=== PATIENT | female | born 1990 | race African-American/Black ===

== ENCOUNTER 2017-11-18 12:52 | Emergency (ER) | payer OTHER ==
[~2017-11-18] VITALS: Ht 157.5 cm; Wt 82.6 kg
[2017-11-18 14:12] LABS: URINE BILIRUBIN NEGATIVE (Negative); URINE BLOOD NEGATIVE (Negative); URINE CLARITY CLEAR; URINE COLOR YELLOW; URINE GLUCOSE-RANDOM* NEGATIVE (Negative); URINE KETONES NEGATIVE (Negative); URINE LEUKOCYTES NEGATIVE (Negative); URINE NITRITE NEGATIVE (Negative); URINE PROTEIN (DIPSTICK) TRACE (Negative); URINE SPECIFIC GRAVITY 1.015 (1.005-1.035)
[2017-11-18] MEDS ORDERED: ZOLOFT25 MG PO (14:25)
[2017-11-18] MEDS ORDERED: THIAMINE PO (14:26)
[2017-11-18] MEDS ORDERED: NO DOZ200 MG PO (14:27)
[2017-11-18] MEDS ORDERED: B-COMPLEX PLUS1 EACH PO (14:27)
[2017-11-18 14:51] LABS: ABSOLUTE NEUTROPHILS 10.5 thou/uL (1.4-8.2); BASOPHILS 0.2 % (0.0-2.0); EOSINOPHILS 0.6 % (0.0-3.0); HEMATOCRIT 38.3 % (37.0-47.0); HEMOGLOBIN 13.3 gm/dL (12.0-15.0); LYMPHOCYTES 13.1 % (24.0-44.0); MCH 29.6 pg (26.0-34.0); MCHC 34.8 g/dL (28.0-37.0); MONOCYTES 5.2 % (1.0-8.0); PLATELET COUNT 392 thou/uL (150-400); POLYS 80.9 % (36.0-66.0); RDW 12.5 % (10.5-14.5); WBC 12.9 thou/uL (4.0-11.0)
[2017-11-18 15:23] LABS: CALCIUM 9.3 mg/dL (8.5-10.1); CREATININE 0.6 mg/dL (0.6-1.0); POTASSIUM 3.6 mmol/L (3.5-5.1)
[2017-11-18 15:28] LABS: ALBUMIN 3.7 g/dL (3.4-5.0); TOTAL BILIRUBIN 0.6 mg/dL (<0.1-1.0); TOTAL PROTEIN 7.4 g/dL (6.4-8.2)
[2017-11-18] MEDS ORDERED: ONDANSETRON HCL4 M2 PO (16:29)
[2017-11-18] MEDS ORDERED: TRAMADOL 50 MG50 MG PO (16:29)
== END 2017-11-18 16:45 | disposition home or self-care (01) ==
LOC: ER 12:52
PROVIDERS: Nurse Practitioner Family
DX: K80.20 Calculus of gallbladder without cholecystitis without obstruction (principal); R94.5 Abnormal results of liver function studies

== ENCOUNTER 2021-03-13 00:01 | Emergency (ER) | payer OTHER ==
[~2021-03-13] VITALS: Ht 157.5 cm; Wt 81.7 kg
[~2021-03-13 00:01] MED LIST: B-COMPLEX PLUS1 EACH PO; NO DOZ200 MG PO; ONDANSETRON HCL4 M2 PO; THIAMINE PO; TRAMADOL 50 MG50 MG PO; ZOLOFT25 MG PO
[2021-03-13 00:05] VITALS: BP 120/77
[2021-03-13] MEDS ORDERED: NORCO7.5 PO (00:50)
== END 2021-03-13 01:36 | disposition home or self-care (01) ==
LOC: ER 00:01
DX: S82.64XA Nondisplaced fracture of lateral malleolus of right fibula, initial encounter for closed fracture (principal); W01.0XXA Fall on same level from slipping, tripping and stumbling without subsequent striking against object, initial encounter; Y93.02 Activity, running; Y92.410 Unspecified street and highway as the place of occurrence of the external cause; Y99.8 Other external cause status; F17.210 Nicotine dependence, cigarettes, uncomplicated

== ENCOUNTER 2021-05-07 08:13 | Emergency (ER) | payer OTHER ==
[~2021-05-07] VITALS: Ht 160 cm; Wt 83.0 kg
[2021-05-07 08:13] VITALS: BP 121/74
[~2021-05-07 08:13] MED LIST changes: +NORCO7.5 PO
== END 2021-05-07 08:58 | disposition home or self-care (01) ==
LOC: ER 08:13
PROVIDERS: Emergency Medicine
DX: U07.1 COVID-19 (principal); F17.210 Nicotine dependence, cigarettes, uncomplicated; Z79.899 Other long term (current) drug therapy

== ENCOUNTER 2021-06-02 11:07 | Emergency (ER) | payer OTHER ==
[~2021-06-02] VITALS: Ht 160 cm; Wt 83.9 kg
[2021-06-02] MEDS ORDERED: LEXAPRO 10 MG T10 M2 PO (11:20)
[2021-06-02 13:11] VITALS: BP 119/83
== END 2021-06-02 13:18 | disposition home or self-care (01) ==
LOC: ER 11:07
DX: S62.604A Fracture of unspecified phalanx of right ring finger, initial encounter for closed fracture (principal); S60.041A Contusion of right ring finger without damage to nail, initial encounter; F17.210 Nicotine dependence, cigarettes, uncomplicated; Z79.899 Other long term (current) drug therapy; Y09 Assault by unspecified means; Y93.89 Activity, other specified; Y92.89 Other specified places as the place of occurrence of the external cause; Y99.8 Other external cause status

== ENCOUNTER 2021-10-02 18:57 | Emergency (ER) | payer OTHER ==
[~2021-10-02] VITALS: Ht 160 cm; Wt 89.4 kg
[~2021-10-02 18:57] MED LIST changes: +LEXAPRO 10 MG T10 M2 PO
[2021-10-02 19:05] VITALS: BP 95/73
[2021-10-02] MEDS ORDERED: IBU600 MG PO (19:14)
== END 2021-10-02 19:35 | disposition home or self-care (01) ==
LOC: ER 18:57
DX: T22.211A Burn of second degree of right forearm, initial encounter (principal); T31.0 Burns involving less than 10% of body surface; F17.210 Nicotine dependence, cigarettes, uncomplicated; Z79.899 Other long term (current) drug therapy